=== PATIENT | female | born 1935 | race Caucasian/White ===

== ENCOUNTER → 2018-01-24 | Outpatient (CLI) | payer MEDICARE, OTHER | END | disposition home or self-care (01) | LOC: KCIC 14:26 | DX: M43.16 Spondylolisthesis, lumbar region (principal); M47.896 Other spondylosis, lumbar region | CPT/HCPCS: 72100 ==

== ENCOUNTER → 2018-02-02 | Outpatient (CLI) | payer MEDICARE, OTHER ==
[2018-02-02] MEDS: LIDOCAINE WITH 8.4% SOD BICARB 3 ML DISP.SYRIN. INJ (10:00)
[2018-02-02] MEDS: IOHEXOL 180 MG/ML 10 ML VIAL. IT (10:00)
== END | disposition home or self-care (01) ==
LOC: RAD 09:24
DX: M43.16 Spondylolisthesis, lumbar region (principal); M47.816 Spondylosis without myelopathy or radiculopathy, lumbar region; M48.061 Spinal stenosis, lumbar region without neurogenic claudication
CPT/HCPCS: 72132; 72265; Q9965

== ENCOUNTER 2018-03-09 08:18 | Inpatient (IN) | payer MEDICARE, OTHER ==
[2018-03-09] MEDS: BUPIVAC MPF-EPI 0.5%-1:200000 30 ML VIAL. INJ (06:00)
[~2018-03-09 08:18] MED LIST: BACITRACIN 50,000 UNIT in IV NORMAL SALINE 1000ML BAG 1,000 ML IRR; GELATIN SPONGE SIZE 100.; KETOROLAC 60 MG/2 ML INJ FOR OR.; LIDOCAINE 1% PF 2 ML VIAL. ID; MORPHINE SULFATE 2 MG/ML DISP.SYRIN. IV; ONDANSETRON PF 4 MG/2 ML VIAL. IV; PROCHLORPERAZINE 10 MG/2 ML VIAL. IV; THROMBIN TOPICAL 20,000 UNIT SPRAY.SYRN KIT TP; fentaNYL PF VIAL 100 MCG/2 ML VIAL IV
[2018-03-09] MEDS ORDERED: PROPOFOL 100 ML IV (09:00)
[2018-03-09] MEDS: IV RINGERS,LACTATED 1000ML 1,000 ML IV (09:21)
[2018-03-09] MEDS ORDERED: ROCURONIUM 50 MG/5 ML VIAL. (10:16)
[2018-03-09] MEDS ORDERED: fentaNYL PF VIAL 100 MCG/2 ML VIAL (10:16)
[2018-03-09] MEDS ORDERED: REMIFENTANIL 2 MG VIAL. IV (10:17)
[2018-03-09] MEDS ORDERED: GLYCOPYRROLATE 1 MG/5 ML VIAL. (10:17)
[2018-03-09] MEDS ORDERED: NEOSTIGMINE METHYLSULFATE 5 MG/5 ML SYRINGE. (10:17)
[2018-03-09] MEDS ORDERED: PROPOFOL 20 ML IV (10:21)
[2018-03-09] MEDS ORDERED: PHENYLEPHRINE 10 MG/ML VIAL. (10:21)
[2018-03-09] MEDS ORDERED: ONDANSETRON PF 4 MG/2 ML VIAL. (10:22)
[2018-03-09] MEDS ORDERED: LIDOCAINE 2% PF Vial for OR 5 ML VIAL. (10:22)
[2018-03-09] MEDS ORDERED: DESFLURANE > 120 MINUTES IH (10:22)
[2018-03-09] MEDS ORDERED: DEXAMETHASONE SOD PHOS 20 MG/5 ML VIAL. (10:22)
[2018-03-09] MEDS ORDERED: MINERAL OIL/PETROLATUM,WHITE OPHTH OINT 3.5GM TUBE. (10:24)
[2018-03-09] MEDS ORDERED: ceFAZolin 2GM PREMIX 2 GM/50 ML BAG IV (12:00)
[2018-03-09] MEDS ORDERED: DESFLURANE 61 TO 120 MINUTES IH (12:10)
[2018-03-09] MEDS ORDERED: ISOFLURANE UP TO 15 MINUTES. IH ×6 (12:10→12:11)
[2018-03-09] MEDS ORDERED: DESFLURANE UP TO 15 MINUTES. IH ×7 (12:10)
[2018-03-09] MEDS ORDERED: DESFLURANE 16 TO 30 MINUTES. IH ×2 (12:10)
[2018-03-09] MEDS ORDERED: DESFLURANE 31 TO 60 MINUTES IH ×4 (12:10)
[2018-03-09] MEDS ORDERED: ISOFLURANE 16 TO 30 MINUTES. IH ×5 (12:11)
[2018-03-09] MEDS ORDERED: ISOFLURANE 31 TO 60 MINUTES. IH ×3 (12:11)
[2018-03-09] MEDS ORDERED: ESMOLOL 100 MG/10 ML VIAL. IV (12:45)
[2018-03-09] MEDS ORDERED: METOPROLOL TARTRATE 5 MG/5 ML VIAL. (12:45)
[2018-03-09] MEDS: AMIODARONE 150 MG in IV DEXTROSE 5% 100ML 100 ML IV (14:17)
[2018-03-09] MEDS: hydroCHLOROthiazide 12.5 MG CAPSULE PO (17:00)
[2018-03-09] MEDS: PANTOPRAZOLE 40 MG TABLET.DR. PO (17:00)
[2018-03-09] MEDS: ATENOLOL 50 MG TABLET. PO (17:00)
[2018-03-09] MEDS: LISINOPRIL 20 MG TABLET PO (17:01)
[2018-03-09] MEDS: SERTRALINE 50 MG TABLET. PO (17:01)
[2018-03-09] MEDS: HYDROcodone/APAP 5/325MG 1 TAB TABLET PO (17:05)
[2018-03-09] MEDS: SIMVASTATIN 40 MG TABLET. PO (20:55)
[2018-03-09] MEDS ORDERED: HYDROcodone/APAP 5/325MG 1 TAB TABLET PO (21:00)
[2018-03-10] MEDS: HYDROcodone/APAP 7.5/325MG 1 TAB TABLET PO ×3 (00:27→15:44)
[2018-03-10] MEDS: REGADENOSON 0.4 MG/5 ML DISP.SYRIN. IV (10:16)
[2018-03-10 10:54] LABS: ADD MAN DIFF? NO
[2018-03-10 10:59] LABS: BASO % 1 % (0-3); EOS # 0.1 x10^3/uL (0.0-0.7); EOS % 2 % (0-3); HEMATOCRIT 37.8 % (36.0-47.0); HEMOGLOBIN 12.8 g/dL (12.0-15.5); LYMPH # 1.1 x10^3/uL (1.0-4.8); LYMPH % 21 % (24-48); MEAN CORPUSCULAR HEMOGLOBIN 31 pg (25-35); MEAN CORPUSCULAR HGB CONC 34 g/dL (31-37); MEAN CORPUSCULAR VOLUME 91 fL (79-100); MONO # 0.6 x10^3/uL (0.0-1.1); MONO % 10 % (0-9); NEUT # 3.6 x10^3uL (1.8-7.7); NEUT % 66 % (31-73); PLATELET COUNT 238 x10^3/uL (140-400); RED BLOOD COUNT 4.15 x10^6/uL (3.50-5.40); RED CELL DISTRIBUTION WIDTH 12.9 % (11.5-14.5); WHITE BLOOD COUNT 5.4 x10^3/uL (4.0-11.0)
[2018-03-10 11:12] LABS: MAGNESIUM 1.7 mg/dL (1.8-2.4)
[2018-03-10 11:18] LABS: ALBUMIN 3.5 g/dL (3.4-5.0); ALK PHOS 57 U/L (46-116); ALT (SGPT) 50 U/L (14-59); ANION GAP 8 (6-14); AST (SGOT) 36 U/L (15-37); BLOOD UREA NITROGEN 26 mg/dL (7-20); BUN/CREATININE RATIO 20 (6-20); CALCIUM 9.1 mg/dL (8.5-10.1); CARBON DIOXIDE 25 mmol/L (21-32); CHLORIDE 105 mmol/L (98-107); CREATININE 1.3 mg/dL (0.6-1.0); GLUCOSE 127 mg/dL (70-99); POTASSIUM 4.6 mmol/L (3.5-5.1); SODIUM 138 mmol/L (136-145); TOTAL BILIRUBIN 0.3 mg/dL (0.2-1.0); TOTAL PROTEIN 7.1 g/dL (6.4-8.2)
[2018-03-10] MEDS: LISINOPRIL 20 MG TABLET PO (11:22)
[2018-03-10] MEDS: PANTOPRAZOLE 40 MG TABLET.DR. PO (11:22)
[2018-03-10] MEDS: SERTRALINE 50 MG TABLET. PO (11:22)
[2018-03-10] MEDS: hydroCHLOROthiazide 12.5 MG CAPSULE PO (11:23)
[2018-03-10] MEDS: METOPROLOL TART IMMED RELEASE 25 MG TABLET. PO (12:00)
[2018-03-10] MEDS ORDERED: ENOXAPARIN 40 MG/0.4 ML SYRINGE. SQ (13:00)
== END 2018-03-10 16:47 | disposition home or self-care (01) | DRG 917 ==
LOC: OPSVCIP 08:18 → 2 NORTH 14:30
DX: T88.59XA Other complications of anesthesia, initial encounter (principal); I50.31 Acute diastolic (congestive) heart failure; I48.91 Unspecified atrial fibrillation; F32.9 Major depressive disorder, single episode, unspecified; I11.0 Hypertensive heart disease with heart failure; E78.5 Hyperlipidemia, unspecified; J45.909 Unspecified asthma, uncomplicated; M43.16 Spondylolisthesis, lumbar region; M48.062 Spinal stenosis, lumbar region with neurogenic claudication; Z90.710 Acquired absence of both cervix and uterus; Z96.653 Presence of artificial knee joint, bilateral; Z85.118 Personal history of other malignant neoplasm of bronchus and lung; M54.40 Lumbago with sciatica, unspecified side; Z88.8 Allergy status to other drugs, medicaments and biological substances; M19.90 Unspecified osteoarthritis, unspecified site; Z53.8 Procedure and treatment not carried out for other reasons
CPT/HCPCS: 36415; 72131; 78452; 80053; 83735; 85025; 85610; 85730; 87641; 93017; 93306; 96374; 96375; 96376; A9500; J0282; J0690; J1100; J1885; J2001; J2405; J2704; J2710; J2785; J3010; J3490; J7030; J7120

== ENCOUNTER 2018-03-16 09:17 | Inpatient (IN) | payer MEDICARE, OTHER ==
[2018-03-16] MEDS: IV RINGERS,LACTATED 1000ML 1,000 ML IV ×2 (07:00→16:22)
[~2018-03-16 09:17] MED LIST changes: -BACITRACIN 50,000 UNIT in IV NORMAL SALINE 1000ML BAG 1,000 ML IRR; -GELATIN SPONGE SIZE 100.; -KETOROLAC 60 MG/2 ML INJ FOR OR.; -MORPHINE SULFATE 2 MG/ML DISP.SYRIN. IV; -PROCHLORPERAZINE 10 MG/2 ML VIAL. IV; -THROMBIN TOPICAL 20,000 UNIT SPRAY.SYRN KIT TP
[2018-03-16] MEDS ORDERED: NEOSTIGMINE METHYLSULFATE 5 MG/5 ML SYRINGE. (11:07)
[2018-03-16] MEDS ORDERED: GLYCOPYRROLATE 1 MG/5 ML VIAL. (11:07)
[2018-03-16] MEDS: BACITRACIN 50,000 UNIT in IV NORMAL SALINE 1000ML BAG 1,000 ML IRR (11:17)
[2018-03-16] MEDS: BUPIVAC MPF-EPI 0.5%-1:200000 30 ML VIAL. INJ (11:17)
[2018-03-16] MEDS: GELATIN SPONGE SIZE 100. (11:17)
[2018-03-16] MEDS: KETOROLAC 60 MG/2 ML INJ FOR OR. (11:17)
[2018-03-16] MEDS: THROMBIN TOPICAL 20,000 UNIT SPRAY.SYRN KIT TP (11:17)
[2018-03-16] MEDS ORDERED: ROCURONIUM 50 MG/5 ML VIAL. (12:30)
[2018-03-16] MEDS ORDERED: fentaNYL PF VIAL 250 MCG/5 ML VIAL (12:31)
[2018-03-16] MEDS ORDERED: DEXAMETHASONE SOD PHOS 20 MG/5 ML VIAL. ×2 (12:32→15:11)
[2018-03-16] MEDS ORDERED: LIDOCAINE 2% PF Vial for OR 5 ML VIAL. (12:32)
[2018-03-16] MEDS ORDERED: PROPOFOL 50 ML IV (12:32)
[2018-03-16] MEDS ORDERED: PROPOFOL 20 ML IV (12:32)
[2018-03-16] MEDS ORDERED: ONDANSETRON PF 4 MG/2 ML VIAL. (12:32)
[2018-03-16] MEDS ORDERED: PHENYLEPHRINE 10 MG/ML VIAL. (12:33)
[2018-03-16] MEDS ORDERED: DESFLURANE > 120 MINUTES IH (12:33)
[2018-03-16] MEDS ORDERED: REMIFENTANIL 1 MG VIAL. IV (13:32)
[2018-03-16] MEDS ORDERED: MINERAL OIL/PETROLATUM,WHITE OPHTH OINT 3.5GM TUBE. ×2 (15:10)
[2018-03-16] MEDS ORDERED: MAGNESIUM HYDROXIDE 2,400 MG/30 ML ORAL.SUSP. PO (15:30)
[2018-03-16] MEDS ORDERED: fentaNYL PF VIAL 100 MCG/2 ML VIAL IV (15:30)
[2018-03-16] MEDS ORDERED: diphenhydrAMINE HCL 25 MG CAPSULE PO (15:30)
[2018-03-16] MEDS ORDERED: MAG HYDROX/ALUMINUM HYD/SIMETH 30 ML ORAL.SUSP PO (15:30)
[2018-03-16] MEDS ORDERED: 0.9 % SODIUM CHLORIDE 10 ML DISP.SYRIN. IV (15:30)
[2018-03-16] MEDS ORDERED: CALCIUM CARBONATE 500 MG TAB.CHEW PO (15:30)
[2018-03-16] MEDS ORDERED: ACETAMINOPHEN 325 MG TABLET. PO (15:30)
[2018-03-16] MEDS ORDERED: diphenhydrAMINE 50 MG/ML VIAL IV (15:30)
[2018-03-16] MEDS ORDERED: ONDANSETRON PF 4 MG/2 ML VIAL. IV (15:30)
[2018-03-16] MEDS: PROCHLORPERAZINE 10 MG/2 ML VIAL. IV ×2 (16:23→16:54)
[2018-03-16] MEDS: MORPHINE SULFATE 2 MG/ML DISP.SYRIN. IV ×2 (16:24→16:55)
[2018-03-16] MEDS: POTASSIUM CL 20MEQ D5-0.45NACL 1,000 ML IV (18:04)
[2018-03-16] MEDS: fentaNYL PF VIAL 100 MCG/2 ML VIAL IV ×2 (18:08→19:51)
[2018-03-16] MEDS: ceFAZolin SODIUM IV Push 1 GM VIAL. IVP (19:04)
[2018-03-16] MEDS: ALBUTEROL SULFATE 2.5 MG/3 ML NEBU. NEB (19:29)
[2018-03-16] MEDS: BUDESONIDE 0.5 MG/2 ML NEBU. NEB (19:29)
[2018-03-16] MEDS ORDERED: NON FORMULARY ITEM (Mometasone/Formoterol (Dulera 100 Mcg/5 Mcg Inhaler) 2 PUFF) IH (21:00)
[2018-03-16] MEDS: DOCUSATE SODIUM 100 MG CAPSULE. PO (21:06)
[2018-03-16] MEDS: SIMVASTATIN 40 MG TABLET. PO (21:08)
[2018-03-16] MEDS: METHOCARBAMOL 750 MG TABLET PO (21:08)
[2018-03-16] MEDS: METOPROLOL TART IMMED RELEASE 25 MG TABLET. PO (21:10)
[2018-03-16] MEDS: oxyCODONE/APAP 5/325 1 TAB TABLET PO (21:11)
[2018-03-16] MEDS ORDERED: ceFAZolin SODIUM 1 GM in IV DEXTROSE 5% 50 ML IV (22:00)
[2018-03-17] MEDS: fentaNYL PF VIAL 100 MCG/2 ML VIAL IV ×2 (01:21→08:26)
[2018-03-17] MEDS: oxyCODONE/APAP 5/325 1 TAB TABLET PO ×3 (01:53→12:01)
[2018-03-17] MEDS: ceFAZolin SODIUM IV Push 1 GM VIAL. IVP ×2 (03:09→10:50)
[2018-03-17] MEDS: PANTOPRAZOLE 40 MG TABLET.DR. PO (06:13)
[2018-03-17] MEDS: BUDESONIDE 0.5 MG/2 ML NEBU. NEB (07:57)
[2018-03-17] MEDS: ALBUTEROL SULFATE 2.5 MG/3 ML NEBU. NEB ×2 (07:57→12:57)
[2018-03-17] MEDS: SERTRALINE 50 MG TABLET. PO (08:07)
[2018-03-17] MEDS: DOCUSATE SODIUM 100 MG CAPSULE. PO (08:07)
[2018-03-17] MEDS: METHOCARBAMOL 750 MG TABLET PO ×2 (08:07→14:34)
[2018-03-17] MEDS: OMEGA-3 FATTY ACIDS/FISH OIL 1,000 MG CAPSULE. PO (08:07)
[2018-03-17] MEDS: hydroCHLOROthiazide 12.5 MG CAPSULE PO (08:11)
[2018-03-17] MEDS: LISINOPRIL 20 MG TABLET PO (08:12)
[2018-03-17] MEDS: METOPROLOL TART IMMED RELEASE 25 MG TABLET. PO (08:12)
[2018-03-17] MEDS: MULTIVITAMIN I-VITE TABLET. PO ×2 (08:16→08:22)
[2018-03-17] MEDS ORDERED: [UNRECOGNIZED DRUG - OTHER] PO (09:00)
[2018-03-17] MEDS ORDERED: MULTIVIT WITH CALCIUM IRON MIN PO (09:00)
== END 2018-03-17 15:40 | disposition home or self-care (01) | DRG 460 ==
LOC: OPSVCIP 09:17 → 4 SOUTHEST 17:44
PROC: 0SG0071 Fusion of Lumbar Vertebral Joint with Autologous Tissue Substitute, Posterior Approach, Posterior Column, Open Approach (ICD-10-PCS; principal; 2018-03-16 10:22)
PROC: 01NB0ZZ Release Lumbar Nerve, Open Approach (ICD-10-PCS; 2018-03-16 10:22)
PROC: 4A11X4G Monitoring of Peripheral Nervous Electrical Activity, Intraoperative, External Approach (ICD-10-PCS; 2018-03-16 10:22)
DX: M48.062 Spinal stenosis, lumbar region with neurogenic claudication (principal); M43.16 Spondylolisthesis, lumbar region; I10 Essential (primary) hypertension; J45.909 Unspecified asthma, uncomplicated; Z96.653 Presence of artificial knee joint, bilateral; M19.90 Unspecified osteoarthritis, unspecified site; Z87.01 Personal history of pneumonia (recurrent); Z85.118 Personal history of other malignant neoplasm of bronchus and lung; Z90.710 Acquired absence of both cervix and uterus; Z88.8 Allergy status to other drugs, medicaments and biological substances
CPT/HCPCS: 36415; 76000; 86850; 86900; 86901; 94640; 94760; 97162-GP; 97530-GP; A7015; C1713; J0690; J0780; J1100; J1885; J2001; J2270; J2405; J2704; J2710; J3010; J3490; J7030; J7120; J7613; J7626

== ENCOUNTER → 2018-06-14 | Outpatient (CLI) | payer MEDICARE, OTHER ==
[2018-03-17 11:01] VITALS: BP 143/57
[~2018-06-14] MED LIST changes: +ATEN50TA PO; +HYDR-2758 PO; +HYDR-2762 PO; +HYDR25TA9 PO; -LIDOCAINE 1% PF 2 ML VIAL. ID; +LISI-130 PO; +METH750T2 PO; +METO25TA4 PO; +MOME13HF2 IH; +MULT-47 PO; +OMEG1CAP68 PO; +OMEP20TA8 PO; -ONDANSETRON PF 4 MG/2 ML VIAL. IV; +OXYC1TAB7 PO; +SERT50TA PO; +SIMV80TA7 PO; +TYLENOL PM PO; +VIT1TABL32 PO; -fentaNYL PF VIAL 100 MCG/2 ML VIAL IV
--- NOTE | 2018-06-14 17:29 | KCIC ---
AP and lateral lumbar spine radiographs 06/14/2018 CLINICAL HISTORY: Low back pain. History of lumbar fusion. AP and lateral digital radiographs of the lumbar spine were obtained. Comparison is made to a CT scan of the lumbar spine dated 03/09/2018. Minimal S-shaped curvature of the thoracolumbar spine is seen. Surgical clips are seen within the right upper quadrant abdomen consistent with a cholecystectomy. Mild anterolisthesis of L4 in relation to L5 is seen. The patient is post right hemilaminotomy and posterolateral fusion using pedicle screws and stabilizing rods at L4-5. Degenerative changes are seen consisting of disc space narrowing, vertebral endplate sclerosis and minimal anterior and posterior vertebral body osteophyte formation predominantly at L4-5 and L5-S1 disc spaces. No fracture or subluxation is seen. Degenerative changes are seen involving the facet joints of the mid and lower lumbar spine. Atherosclerotic calcification of the abdominal aorta is noted. IMPRESSION: Postsurgical and degenerative changes are seen involving the lumbar spine as outlined above. No acute osseous abnormality is seen. Electronically signed by: Mike Galarza MD (06/14/2018 5:25 PM) [email or web address]
== END | disposition home or self-care (01) ==
LOC: KCIC 10:23
PROVIDERS: ATTEND Neurological Surgery
DX: M47.896 Other spondylosis, lumbar region (principal); M48.061 Spinal stenosis, lumbar region without neurogenic claudication; M25.78 Osteophyte, vertebrae; I70.0 Atherosclerosis of aorta; Z98.1 Arthrodesis status
CPT/HCPCS: 72100

== ENCOUNTER → 2018-07-12 | Outpatient (CLI) | payer MEDICARE, OTHER ==
[2018-03-17 11:01] VITALS: BP 143/57
--- NOTE | 2018-07-12 14:18 | KCIC ---
2 views left hip without comparison for left hip pain, status post lumbar surgery earlier this year. FINDINGS: There is no fracture, dislocation, or acute osseous abnormality identified. No significant degenerative changes. No radiopaque foreign bodies. IMPRESSION: 1. No acute osseous abnormality of the left hip. Electronically signed by: Jude Garcia MD (07/12/2018 2:15 PM) [id number]
== END | disposition home or self-care (01) ==
LOC: KCIC 10:06
PROVIDERS: ATTEND Nurse Practitioner Adult Health
DX: M25.552 Pain in left hip (principal)
CPT/HCPCS: 73502

== ENCOUNTER → 2018-11-16 | Outpatient (CLI) | payer MEDICARE, OTHER ==
[2018-03-17 11:01] VITALS: BP 143/57
[~2018-11-16] MED LIST changes: +GADOBUTROL 10 MMOL/10 ML VIAL IV ONE; +HYDR-2145 PO; -HYDR-2758 PO; +HYDR-2761 PO; -HYDR-2762 PO; +HYDR-2765 PO; -HYDR25TA9 PO; +SIMV80TA17 PO; -SIMV80TA7 PO
--- NOTE | 2018-11-16 12:18 | KCIC ---
MRI Lumbar Spine without and with contrast History: Lumbar radiculopathy, previous surgery, right hip and buttock pain Technique: Multiplanar, multi sequential pre and postcontrast MR imaging was performed of the lumbar spine. Comparison: October 07, 2017 Findings: There are now bilateral pedicle screws L4-5. Exam does not accurately evaluate integrity of hardware. There is increased grade 1 anterior spondylolisthesis L4-5, similar negligible anterior spondylolisthesis L5-S1. There is minimal posterior subluxation L3 relative to L4 greater than previously, also negligible posterior subluxation L2 relative L3 greater. Conus terminates at L1-2. There is moderate to severe narrowing of the L4-5 intervertebral disc space somewhat greater. There is again mild degenerative disc disease L5-S1 and L2-3, mild disc desiccation L3-4 and L1-2. L1-L2: This level was not included on the axial images. There is again negligible posterior protrusion. Spinal canal and neural foramina are adequate. L2-L3: There is minimal disc osteophyte complex and bulge with mild indentation upon the ventral thecal sac greatest in the far lateral recess as seen previously, spinal canal overall adequate. There is again moderate to severe facet degenerative change and moderate buckling of the ligamentum flavum. There is fluid in the facet articulations bilaterally. Neural foramina are overall adequate. L3-L4: There is moderate buckling of the ligamentum flavum and facet hypertrophic change. There is minimal disc osteophyte complex. There is now extradural focus of signal abnormality in the left lateral recess which does not enhance centrally, relatively hypointense on T2 sequence, overall size about 0.5 cm AP by 0.6 cm transverse by about 0.7 cm CC, located just superficial to the ligament flavum. There is new moderate narrowing of the far left lateral recess primarily from posteriorly. There is increased mild narrowing of the central canal and far right lateral recess. Neural foramina are overall adequate. L4-L5: There has been interval posterior decompression. There is facet degenerative change. There is mild narrowing of the far left lateral recess, central canal and right lateral recess now overall adequate. There is mild partial uncovering of the posterior aspect of the disc due to spondylolisthesis as minimal superimposed bulge. Neural foramina are adequate. L5-S1: There is mild to moderate facet degenerative change. Spinal canal and neural foramina are adequate. Impression: 1. Comparing with the September 2017 exam, there is now posterolateral fusion hardware L4-5. There is greater degree of L4-5 intervertebral disc space narrowing and somewhat increased grade 1 anterior spondylolisthesis at L4-5. There is increased minimal posterior subluxation L3 relative to L4. There is increased moderate left lateral recess stenosis at L3-4 in part by presumed complex synovial cyst, minimal narrowing of the central canal and right lateral recess at L3-4. There is other mild abnormal alignment as stated, multilevel facet degenerative change. There is no new significant lumbar neural foramina compromise. Electronically signed by: Rudy Sultana MD (11/16/2018 12:16 PM) [email or web address]
--- NOTE | 2018-11-16 12:54 | KCIC ---
EXAM: Lumbar spine, 3 views. HISTORY: Fusion. Pain. COMPARISON: 06/14/2018 FINDINGS: 3 views lumbar spine are obtained. There is instrumented posterior spinal fusion at L4-L5. There is grade 1 anterolisthesis this level measuring 9, stable in appearance. There is also grade 1 anterolisthesis of L5 on S1 measuring 5 mm. There is disc space narrowing at L4-L5 and facet arthropathy at L4-L5 and L5-S1. IMPRESSION: 1. Instrumented fusion at L4-L5. There has been no change in disc space narrowing, facet arthropathy and anterolisthesis at this level. 2. Degenerative change and anterolisthesis of L5 on S1, also stable in appearance. Electronically signed by: Lise Cain MD (11/16/2018 12:51 PM) [email or web address]
== END | disposition home or self-care (01) ==
LOC: KCIC 10:08
PROVIDERS: ATTEND Neurological Surgery
DX: M51.16 Intervertebral disc disorders with radiculopathy, lumbar region (principal); M48.061 Spinal stenosis, lumbar region without neurogenic claudication; M51.37 Other intervertebral disc degeneration, lumbosacral region; M43.17 Spondylolisthesis, lumbosacral region; M25.78 Osteophyte, vertebrae; J45.909 Unspecified asthma, uncomplicated; Z88.8 Allergy status to other drugs, medicaments and biological substances; Z87.891 Personal history of nicotine dependence
CPT/HCPCS: 72100; 72158; 82565; A9585

== ENCOUNTER → 2020-06-04 | Outpatient (CLI) | payer MEDICARE, OTHER ==
[2018-03-17 11:01] VITALS: BP 143/57
[~2020-06-04] MED LIST changes: +APIX2.5T PO; -GADOBUTROL 10 MMOL/10 ML VIAL IV ONE; +GADOTERATE 7.5 MMOL/15ML VIAL. IVP ONE
--- NOTE | 2020-06-04 16:13 | KCIC ---
LUMBAR SPINE WO/W CONTRAST Date: 06/04/2020 12:30 PM Indication: LOW BACK PAIN HX LUMBAR LAMINECTOMY. LUMBAR FUSION 2018. Pain in LBP/right hip. Pt fell a few months ago and landed seated on hard concrete. Comparison: 11/16/2018. Technique: Multi-planar multi-weighted magnetic resonance imaging of the lumbar spine was performed with and without intravenous contrast using the standard lumbar spine protocol. 15 cc Dotarem contrast was administered intravenously during the examination. FINDINGS: Postsurgical changes of posterior decompression and posterior instrumentation at L4-5. 3 mm retrolisthesis at L2-3. 2 mm retrolisthesis at L3-4. 3 mm anterolisthesis at L4-5 and L5-S1. No acute fracture. Moderate multilevel degenerative disc desiccation and disc height loss, severe at L2-3 and progressed from the prior. Degenerative endplate edema at L2-3, new from the prior. The conus terminates at a normal level. No abnormal signal is seen within the visualized distal spinal cord. No clumping of intrathecal nerve roots. No soft tissue abnormality in the visualized abdomen or pelvis. T12-L1: No disc bulge. No facet arthropathy. No significant spinal stenosis or neural foraminal narrowing. L1-L2: Disc bulge. Mild facet arthropathy. No significant spinal stenosis or neural foraminal narrowing. L2-L3: Disc bulge. Moderate to severe facet arthropathy. Moderate spinal stenosis, progressed from the prior. Mild bilateral neural foraminal narrowing, progressed from the prior. L3-L4: Disc bulge. Mild facet arthropathy. Mild spinal stenosis. Mild bilateral lateral recess narrowing, previously moderate on the left. Mild bilateral neural foraminal narrowing. L4-L5: Posterior decompression. No spinal canal stenosis. Mild neural foraminal narrowing. L5-S1: Disc bulge. Mild facet arthropathy. No significant spinal stenosis or neural foraminal narrowing. IMPRESSION: Lumbar spondylosis, progressed at L2-3 and detailed level by level above. Electronically signed by: Rudy Garza MD (06/04/2020 4:09 PM) [id number]
== END | disposition home or self-care (01) ==
LOC: KCIC MRI 12:29
PROVIDERS: ATTEND Internal Medicine
DX: M47.817 Spondylosis without myelopathy or radiculopathy, lumbosacral region (principal); M48.061 Spinal stenosis, lumbar region without neurogenic claudication; M43.16 Spondylolisthesis, lumbar region; Z98.1 Arthrodesis status
CPT/HCPCS: 72158; A9575

== ENCOUNTER → 2020-08-06 | Outpatient (CLI) | payer MEDICARE ==
[2018-03-17 11:01] VITALS: BP 143/57
[~2020-08-06] MED LIST changes: +ALLO100T PO; +ESTR0.5T PO; +FURO-68 PO; -GADOTERATE 7.5 MMOL/15ML VIAL. IVP ONE; +GLUC-11 PO; +POTA20TA4 PO; +PRAV20TA2 PO; +estropipate PO
--- NOTE | 2020-08-06 15:16 | PDOC1 ---
INITIAL PAIN CONSULT DATE OF SERVICE: DOS: DATE: 08/06/20 TIME: 15:09 CHIEF COMPLAINT: Chief Complaint: Low back and right lower extremity pain HISTORY OF PRESENT ILLNESS: 85-year-old female presents with history of pain low back right lower extremity for about 6 months not the result of any specific injury or accident that she is aware worse over time and spreading into the low back into the right lower ex tremity posterior gluteus lateral thigh anterior thigh medial thigh on the right side. Patient reports this travels about to the knee or just below it no symptoms on the left side. Patient reports it is constant sharp stabbing describes it as radiating aching sometimes cold sensation in the right leg as well. Patient reports no loss of motor function but significant fatigability with walking and standing much worse with these activities better with sitting or laying down but does awaken her from sleep about 2-3 times at night and she tosses and turns over the past few months secondary to the pain. Patient ports is not effective bowel bladder control does affect her ability to walk however she is using a walker she was with her today. Patient is had physical therapy for her knee and has had some therapy on her back as well which does help but only temporarily. Patient reports her disability rating 0-10 10 being the worst is a 5 with him home responsibilities 7 with recreation 10 with social activity 5 with self-care and 5 with life support activities. Patient did have an MRI scan of the lumbar spine dated June 04, 2020 showing lumbar spondylosis progressed at L2-3 with disc bulge at L2-3 moderate spinal stenosis progressed from prior exam L3-4 showing mild spinal stenosis and disc bulge as well with bilateral lateral recess narrowing previously moderate on the left mild bila teral neuroforaminal narrowing. Also L4-5 posterior decompression. Patient reports no loss of motor function but significant fatigability of the right lower extremity with ambulation. PAST MEDICAL HISTORY: PMH: Shortness of breath, hypertension, atrial fibrillation, arthritis, lung cancer 1991 PREVIOUS SURGERIES: Past Surgical Hx: Hysterectomy 1968, lumbar fusion 1999 59, cholecystectomy 1999, bilateral knee replacement 2014 CURRENT MEDICATIONS: Current Meds: Active Scripts Medications Dose Route/Sig Max Daily Dose Days Date Category Pravastatin Sodium 20 Mg Tablet 1 Tab PO DAILY 08/06/20 Reported Potassium Chloride (Potassium Chloride) 20 Meq Tablet.er 20 Meq PO DAILY 08/06/20 Reported Hydrocodone-Apap 5-325 (Hydrocodone Bit/Acetaminophen) 1 Tab Tablet 1 Tab PO Q4-6HRS PRN 08/06/20 Reported Cidaflex Tablet (Glucosamine Hcl/Chondr Kaufman A Na) 1 Each Tablet 1 Tab PO TID 30 08/06/20 Reported Lasix (Furosemide) 40 Mg Tablet 1 Tab PO DAILY 30 08/06/20 Reported [estropipate] PO DAILY 08/06/20 Reported Estradiol 0.5 Mg Tablet 1 Tab PO DAILY 08/06/20 Reported Allopurinol 100 Mg Tablet 2 Tab PO DAILY 08/06/20 Reported Eliquis (Apixaban) 2.5 Mg Tablet 2.5 Mg PO 06/04/20 Reported Metoprolol Tartrate 25 Mg Tablet 12.5 Mg PO BID 03/15/18 Reported Zoloft (Sertraline Hcl) 50 Mg Tablet 50 Mg PO DAILY 03/06/18 Reported Omeprazole 20 Mg Tablet.dr 20 Mg PO DAILY 03/06/18 Reported Ocuvite Tablet (Vit A,C & E/Lutein/Minerals) 1 Each Tablet 1 Each PO DAILY 03/06/18 Reported Fish Oil 500 Mg Softgel (Burdick-3/Dha/Epa/Fish Oil) 1 Each Capsule 1 Each PO DAILY 03/06/18 Reported Multiple Vitamins For Women (Multivit With Calcium,Iron,Min) 1 Each Tablet 1 Each PO DAILY 03/06/18 Reported Dulera 100 Mcg/5 Mcg Inhaler (Mometasone/Formoterol) 13 Gm Hfa.aer.ad 2 Puff IH BID 03/06/18 Reported ALLERGIES; Allergies: Coded Allergies: adhesive (Verified Allergy, Intermediate, DERMABOND, 03/16/18) adhesive tape (Verified Adverse Reaction, Intermediate, 03/16/18) TEARS SKIN/SENSITIVE SKIN FAMILY HISTORY: Family Hx: High blood pressure SOCIAL HISTORY: Social Hx: Patient does not rachel alcohol does not smoke or use any illegal illicit or recreational drugs reports she is currently retired and lives locally in [facility]. REVIEW OF SYSTEMS: ROS: Positive for those items mentioned in history of present illness, all systems are reviewed, otherwise negative, is complete full and well-documented on patient's chart. PHYSICAL EXAM: VS: Blood pressure is 131/64 pulse 98 respirations 18 temperature 98.1 F height is 5 feet 5 inches weight 174 pounds PE: PHYSICAL EXAMINATION: GENERAL: The patient is awake, alert, oriented, appropriate, very pleasant demeanor HEENT: Shows normocephalic, atraumatic. Extraocular movements are intact and symmetrical. Oral cavity: Mucous membranes moist and pink. NECK: Shows anterior throat supple without palpable lymphadenopathy noted. Swallow reflex symmetrical. CHEST: Shows normal on inspection. Breath sounds are clear bilaterally, distant but no rales rhonchi or wheezes auscultated. HEART: Shows S1, S2 clear. No murmurs auscultated. ABDOMEN: Soft, nontender, nondistended, obese. No palpable organomegaly is noted. No rebound or guarding demonstrated. BACK: Shows spine grossly in the midline. Normal-appearing cervical lordotic curvature. There is increased thoracic kyphosis, some minor flattening of the lumbar lordotic curvature. Lumbar paraspinous muscles show symmetrical on inspection, on palpation shows some moderate tenderness diffusely throughout the upper, middle and lower distribution of the paraspinous muscles bilaterally and also into the lower thoracic paraspinous musculature, firm and mildly tender, but without specific trigger points, without radiation of pain. The patient has good rotational motion of the lumbar spine, both laterally as well as extension and flexion without significant difficulty. No tenderness over the spinous processes, sacrum or sacroiliac regions. EXTREMITIES: Lower extremities show deep tendon reflexes 1+ in the patellar and tendo calcaneus tendons. Motor exam is 4 on a scale of 5 with right dorsiflexion, extension, quadriceps and hamstring flexion and 5/5 on the left. Peripheral pulses are 1 posterior tibial. 1+ peripheral edema is noted bilaterally at the ankle only. Lower extremities are warm and dry to touch, equal in color and appearance. Straight leg raise noted to be negative bilaterally. Gaenslen's and Vito's maneuvers are negative bilaterally as well. The patient is able to stand, standing on her toes is difficult when she loses balance quickly and she is walking with a slight shuffling gait but is using a walker to ambulate does not appear to favor the right or left lower extremity significantly for short distance in the office today. SKIN: Shows warm and dry, good turgor. No edema. No sores, rashes or bruising throughout. IMPRESSION: Impression: 85-year-old female with proximate 6-month history of low back right lower extremity pain in a radicular fashion MRI scan lumbar spine as noted Hypertension Atrial fibrillation Arthritis History of lung cancer Plan: Options were discussed with the patient including conservative medical management therapies interventional techniques that she like to pursue and vaginal techniques, we discussed a lumbar epidural steroid injection using description as well as anatomical models to describe the procedure. 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 If deemed safe and appropriate will have her return for lumbar epidural steroid injection at that time. In the meantime we will try Medrol Dosepak patient given instructions will side effects aware with the medication and will follow-up as scheduled, if Eliquis is held, for lumbar epidural steroid injection. SHRUTHI JAY MD Aug 06, 2020 15:16
== END | disposition home or self-care (01) ==
LOC: PNCL 13:21
PROVIDERS: ATTEND Anesthesiology
DX: M54.5 Low back pain (principal); M79.604 Pain in right leg; M47.816 Spondylosis without myelopathy or radiculopathy, lumbar region; M48.061 Spinal stenosis, lumbar region without neurogenic claudication; I10 Essential (primary) hypertension; I48.91 Unspecified atrial fibrillation; M19.90 Unspecified osteoarthritis, unspecified site; E78.00 Pure hypercholesterolemia, unspecified; K21.9 Gastro-esophageal reflux disease without esophagitis; J45.909 Unspecified asthma, uncomplicated; Z85.118 Personal history of other malignant neoplasm of bronchus and lung; Z90.49 Acquired absence of other specified parts of digestive tract; Z90.410 Acquired total absence of pancreas; Z96.653 Presence of artificial knee joint, bilateral; Z79.899 Other long term (current) drug therapy; Z85.828 Personal history of other malignant neoplasm of skin; Z87.891 Personal history of nicotine dependence; Z88.8 Allergy status to other drugs, medicaments and biological substances
CPT/HCPCS: G0463

== ENCOUNTER → 2020-08-20 | Outpatient (CLI) | payer MEDICARE ==
[2018-03-17 11:01] VITALS: BP 143/57
[~2020-08-20] MED LIST changes: +IOHEXOL 180 MG/ML 10 ML VIAL. ONE; +methylPREDNISolone ACETATE 40 MG/ML VIAL. ONE; +methylPREDNISolone ACETATE 80 MG/ML VIAL. ONE
--- NOTE | 2020-08-20 15:29 | PDOC ---
Progress Note - Pain Clinic Date of Service: DOS: DATE: 08/20/20 TIME: 15:26 Diagnosis: Dx: Lumbar radiculopathy with lumbar degenerative disease and lumbar postlaminectomy syndrome History or Present Illness: HPI: 85-year female returns follow-up status post initial evaluation and clearance to hold her Eliquis for 2 days for epidural steroid injection patient is achieved this from her primary care physician and has been off of it now for 2days reports still significant pain in the low back and right lower extremity right posterior gluteus lateral thigh anterior thigh medial thigh some in the groin and the medial knee as well patient reports it was much better after Medrol Dosepak which we given her last time but the pain began to return over the last few days. Patient reports it is a stabbing pain in the right low back and right leg and is well as sharp in the back and the leg and thigh patient rates is a 9 on scale 10 is worse over the past week 7 on average for its least is a 7 today. Patient reports no new motor or sensory deficits no new bowel or bladder incontinence or other complaints. Physical Exam: VS: Blood pressure is 131/76 pulse 73 respirations 18 temperature 97.6 F height 5 feet 5 inches weight is 176 pounds PE: PHYSICAL EXAMINATION: GENERAL: The patient is awake, alert, oriented, appropriate, very pleasant demeanor HEENT: Shows normocephalic, atraumatic. Extraocular movements are intact and symmetrical. NECK: Shows anterior throat supple without palpable lymphadenopathy noted. Swallow reflex symmetrical. CHEST: Shows normal on inspection. Breath sounds are clear bilaterally. HEART: Shows S1, S2 clear. No murmurs auscultated. ABDOMEN: Soft, nontender, nondistended. No palpable organomegaly is noted. BACK: Shows spine grossly in the midline. Normal-appearing cervical lordotic curvature. There is slightly increased thoracic kyphosis, some minor flattening of the lumbar lordotic curvature. Lumbar paraspinous muscles show symmetrical on inspection, well-healed surgical scar in the midline, on palpation shows some moderate tenderness diffusely throughout the upper, middle and lower distribution of the paraspinous muscles without specific trigger points, without radiation of pain. The patient has good rotational motion of the lumbar spine, both laterally as well as extension and flexion without significant difficulty. No tenderness over the spinous processes, sacrum or sacroiliac regions. EXTREMITIES: Lower extremities show deep tendon reflexes 1+ in the patellar and tendo calcaneus tendons. Motor exam is 4 on a scale of 5 with right dorsiflexion, extension, quadriceps and hamstring flexion and 5/5 on the left. Peripheral pulses are 1+ posterior tibial. New peripheral edema is noted bilaterally. Lower extremities are warm and dry to touch, equal in color and appearance. SKIN: Shows warm and dry, good turgor. No edema. No sores, rashes or bruising throughout. Procedure: Procedure: Options were discussed with the patient. Patient will chart reviews her current medication regimen updated current review of systems updated today as well. We will proceed with a lumbar epidural steroid injection today with fluoroscopic guidance. Risks were discussed including but not limited to: Bleeding, infection, possibility of epidural hematoma and subsequent neurological compromise, dural puncture, headaches, spinal cord and/or nerve damage, side effects of steroid medication, and poor results regarding pain control. Patient understands wished to proceed. Patient will return to the clinic in approximate 2 weeks for follow-up, was counseled as return appointment, activity level, and side effects to be aware of. Medication Injected: Med Injected: Procedure is lumbar epidural steroid injection under local anesthetic using sterile prep and drape at the L3-4 level using C-arm fluoroscopic guidance in both AP and lateral views medications injected is 120 mg Depo-Medrol + 10 mL preservative-free normal saline and 2 mL contrast- condition at discharge is stable patient tolerated procedure well had no complications. Condition at Discharge: Condition at Discharge: Condition at discharge is stable, patient tolerated procedure well and had no complications. SHRUTHI JAY MD Aug 20, 2020 15:29
== END | disposition home or self-care (01) ==
LOC: PNCL 14:23
PROVIDERS: ATTEND Anesthesiology
DX: M51.16 Intervertebral disc disorders with radiculopathy, lumbar region (principal); M96.1 Postlaminectomy syndrome, not elsewhere classified; I10 Essential (primary) hypertension; I48.91 Unspecified atrial fibrillation; E78.00 Pure hypercholesterolemia, unspecified; J45.909 Unspecified asthma, uncomplicated; M19.90 Unspecified osteoarthritis, unspecified site; K21.9 Gastro-esophageal reflux disease without esophagitis; F32.9 Major depressive disorder, single episode, unspecified; Z90.49 Acquired absence of other specified parts of digestive tract; Z90.710 Acquired absence of both cervix and uterus; Z98.890 Other specified postprocedural states; Z85.828 Personal history of other malignant neoplasm of skin; Z87.891 Personal history of nicotine dependence; Z79.899 Other long term (current) drug therapy; Z87.440 Personal history of urinary (tract) infections; Z72.89 Other problems related to lifestyle; Z82.49 Family history of ischemic heart disease and other diseases of the circulatory system; Z88.8 Allergy status to other drugs, medicaments and biological substances
CPT/HCPCS: 62323; J1030; J1040; Q9965

== ENCOUNTER → 2020-09-04 | Outpatient (CLI) | payer MEDICARE ==
[2018-03-17 11:01] VITALS: BP 143/57
--- NOTE | 2020-09-04 14:14 | PDOC ---
Progress Note - Pain Clinic Date of Service: DOS: DATE: 09/04/20 TIME: 14:11 Diagnosis: Dx: Lumbar radiculopathy with lumbar degenerative disease and lumbar postlaminectomy syndrome History or Present Illness: HPI: 85-year-old female returns follow-up status post lumbar epidural steroid traction x1. Patient reports about 75% improvement in her low back and right lower extremity pain. Patient ports he can increase activities greater ease and comfort standing for longer distances walking greater distances traveling with g reater ease and comfort doing household activities much greater ease and sleeping better at night patient reports he does not awaken her from sleep at this time. Patient rates her pain as a 9 on scale 10 is worse over the past week 7 on average 5 its least describes as sharp and aching in the low back with radiating pain that is shooting sometimes throbbing and dull in the low back. Patient ports pain into the right hip right lateral thigh anterior thigh medial thigh and medial knee with activity but much better than it was. Patient reports no new motor or sensory deficits no new bowel or bladder incontinence or other complaints. Physical Exam: VS: Blood pressure is 120/77 pulse 101 respirations 18 temperature 97.5 F height 5 feet 5 inches weight is 171 pounds PE: PHYSICAL EXAMINATION: GENERAL: The patient is awake, alert, oriented, appropriate, very pleasant demeanor HEENT: Shows normocephalic, atraumatic. Extraocular movements are intact and symmetrical. Oral cavity: Mucous membranes moist and pink. Dentition is intact. NECK: Shows anterior throat supple without palpable lymphadenopathy noted. Swallow reflex symmetrical. CHEST: Shows normal on inspection. Breath sounds are clear bilaterally, no rales or rhonchi. HEART: Shows S1, S2 clear. No murmurs auscultated. ABDOMEN: Soft, nontender, nondistended, obese. No palpable organomegaly is noted. No rebound or guarding demonstrated. BACK: Shows spine grossly in the midline. Normal-appearing cervical lordotic curvature. There is increased thoracic kyphosis, some minor flattening of the lumbar lordotic curvature. Lumbar paraspinous muscles show symmetrical on inspection, on palpation shows some moderate tenderness diffusely throughout the upper, middle and lower distribution of the paraspinous muscles without specific trigger points, without radiation of pain. The patient has good rotational motion of the lumbar spine, both laterally as well as extension and flexion without significant difficulty. No tenderness over the spinous processes, sacrum or sacroiliac regions. EXTREMITIES: Lower extremities show deep tendon reflexes 1+ in the patellar and tendo calcaneus tendons. Motor exam is 4 on a scale of 5 with right dorsiflexion, extension, quadriceps and hamstring flexion and 5/5 on the left. Peripheral pulses are 1+ posterior tibial. No peripheral edema is noted bilate rally. Lower extremities are warm and dry to touch, equal in color and appearance. SKIN: Shows warm and dry, good turgor. No edema. No sores, rashes or bruising throughout. Procedure: Procedure: Options were discussed with the patient. Patient will chart reviews her current medication regimen updated current review of systems updated today as well. We will proceed with a second in the series lumbar epidural steroid injection today with fluoroscopic guidance. Risks were discussed including but not limited to: Bleeding, infection, possibility of epidural hematoma and subsequent neurological compromise, dural puncture, headaches, spinal cord and/or nerve damage, side effects of steroid medication, and poor results regarding pain control. Patient understands wished to proceed. Patient will return to clinic in approximate 2 weeks for follow-up was counseled as to return appointment activity level and side effects to be aware of. Medication Injected: Med Injected: Procedure is lumbar epidural steroid injection under local anesthetic using sterile prep and drape at the L3-4 level using C-arm fluoroscopic guidance in both AP and lateral views medications injected is 120 mg Depo-Medrol + 10 mL preservative-free normal saline and 2 mL contrast- condition at discharge is stable patient tolerated procedure well had no complications. Condition at Discharge: Condition at Discharge: Condition at discharge stable, patient tolerated procedure well and had no complications. SHRUTHI JAY MD Sep 04, 2020 14:14
== END | disposition home or self-care (01) ==
LOC: PNCL 13:29
PROVIDERS: ATTEND Anesthesiology
DX: M51.16 Intervertebral disc disorders with radiculopathy, lumbar region (principal); M96.1 Postlaminectomy syndrome, not elsewhere classified; M79.604 Pain in right leg; E78.00 Pure hypercholesterolemia, unspecified; I10 Essential (primary) hypertension; I48.91 Unspecified atrial fibrillation; J45.909 Unspecified asthma, uncomplicated; K21.9 Gastro-esophageal reflux disease without esophagitis; M19.90 Unspecified osteoarthritis, unspecified site; F32.9 Major depressive disorder, single episode, unspecified; Z85.828 Personal history of other malignant neoplasm of skin; Z90.49 Acquired absence of other specified parts of digestive tract; Z91.040 Latex allergy status; Z98.890 Other specified postprocedural states; Z79.899 Other long term (current) drug therapy; Z85.118 Personal history of other malignant neoplasm of bronchus and lung; Z87.891 Personal history of nicotine dependence; Z88.8 Allergy status to other drugs, medicaments and biological substances
CPT/HCPCS: 62323; J1030; J1040; Q9965

== ENCOUNTER → 2021-02-12 | Outpatient (CLI) | payer MEDICARE ==
[2018-03-17 11:01] VITALS: BP 143/57
[~2021-02-12] MED LIST changes: +APIX5TAB PO; -IOHEXOL 180 MG/ML 10 ML VIAL. ONE; +METH-562 PO; -METH750T2 PO; +METO5TAB4 PO; +TORS20TA2 PO; -methylPREDNISolone ACETATE 40 MG/ML VIAL. ONE; -methylPREDNISolone ACETATE 80 MG/ML VIAL. ONE
--- NOTE | 2021-02-12 12:17 | PDOC ---
Progress Note - Pain Clinic Date of Service: DOS: DATE: 02/12/21 TIME: 12:12 Diagnosis: Dx: Lumbar radiculopathy with lumbar degenerative disc disease and lumbar postlaminectomy syndrome History or Present Illness: HPI: 85-year-old female returns follow-up status post lumbar epidural steroid injections x2 most recently September 04, 2020. Patient reports he did very well with that with about a 75% improvement after the injection for approximately 2 months, with pain returning down the low back and bilateral lower extremities mostly the posterior thighs gluteus anterior thighs anterior medial thighs medial groin medial lower leg medial knees patient reports the right side with traditionally the lower side but not the left side is painful as well reports worse with walking standing changing positions better with sitting or laying down generally does not awaken her from sleep at night but over the last few weeks it has about once every 2-3 times at night patient reports it is a 10 on scale 10 is worse over the past week 9 on average 5 its least and is a 9 today patient reports that sharp and aching severe radiating and shooting in the lower extremities patient has done physical therapy in the past also is still doing stretching and strengthening exercises from those therapies daily and is trying to walk daily up she is using a walker most recently but is still walking daily as much she can. Patient reports she still taking [id number] Tylenol also takes hydrocodone occasionally will take an Advil or naproxen but it does upset her stomach occasionally. Patient reports no new motor or sensory deficits no new bowel or bladder incontinence or other complaints. Physical Exam: VS: Blood pressure is 118/73 pulse 127 respirations 18 temperature 97.6 Weight is 174 pounds PE: PHYSICAL EXAMINATION: GENERAL: The patient is awake, alert, oriented, appropriate, very pleasant demeanor HEENT: Shows normocephalic, atraumatic. Extraocular movements are intact and symmetrical. Oral cavity: Mucous membranes moist and pink. NECK: Shows anterior throat supple without palpable lymphadenopathy noted. Swallow reflex symmetrical. CHEST: Shows normal on inspection. Breath sounds are clear bilaterally, distant but no rales rhonchi or wheezes auscultated. HEART: Shows S1, S2 clear. No murmurs auscultated. ABDOMEN: Soft, nontender, nondistended, obese. No palpable organomegaly is noted. No rebound or guarding demonstrated. BACK: Shows spine grossly in the midline. Normal-appearing cervical lordotic curvature. There is slightly increased thoracic kyphosis, some minor flattening of the lumbar lordotic curvature. Lumbar paraspinous muscles show symmetrical on inspection, on palpation shows some moderate tenderness diffusely throughout the upper, middle and lower distribution of the paraspinous muscles, but without specific trigger points, without radiation of pain. The patient has good rotational motion of the lumbar spine, both laterally as well as extension and flexion without significant difficulty. EXTREMITIES: Lower extremities show deep tendon reflexes 1 in the patellar and tendo calcaneus tendons. Motor exam is 4 on a scale of 5 with right dorsiflexion, extension, quadriceps and hamstring flexion and 5/5 on the left. Peripheral pulses are 1+ posterior tibial. No peripheral edema is noted bilaterally. Lower extremities are warm and dry to touch, equal in color and appearance. Straight leg raise noted to be positive on the right about 40 degrees, left side is negative. Gaenslen's and Vito's maneuvers are negative as well. The patient is able to stand, uses her walker to help her up from a seated position is walking with a shuffling gait using the walker to ambulate. SKIN: Shows warm and dry, good turgor. No edema. No sores, rashes or bruising throughout. Procedure: Procedure: Options discussed with the patient patient's daughter who accompanied her visit today. Patient has clinical L3-4 radiculopathy bilaterally right greater than left and is responded well to lumbar epidural steroid injections. We discussed continued physical therapies as well as interventional techniques that she did very well after the last lumbar epidural steroid injection and would like to proceed with additional injection. Also will have her hold her Eliquis for 3 days which she has been cleared with her plant health care technician to do so as well. We will have her return after preauthorization and plan for translaminar L3-4 level lumbar epidural steroid injection at that time. The meantime patient will continue with oral analgesics as well as stretching strengthening and walking as tolerated. Medication Injected: Med Injected: None Condition at Discharge: Condition at Discharge: Condition at discharge is stable. SHRUTHI JAY MD February 12, 2021 12:17
== END | disposition home or self-care (01) ==
LOC: PNCL 11:15
PROVIDERS: ATTEND Anesthesiology
DX: M51.16 Intervertebral disc disorders with radiculopathy, lumbar region (principal); M96.1 Postlaminectomy syndrome, not elsewhere classified; E78.00 Pure hypercholesterolemia, unspecified; I10 Essential (primary) hypertension; I48.91 Unspecified atrial fibrillation; K21.9 Gastro-esophageal reflux disease without esophagitis; M19.90 Unspecified osteoarthritis, unspecified site; J45.909 Unspecified asthma, uncomplicated; F32.9 Major depressive disorder, single episode, unspecified; Z90.710 Acquired absence of both cervix and uterus; Z90.49 Acquired absence of other specified parts of digestive tract; Z98.890 Other specified postprocedural states; Z85.828 Personal history of other malignant neoplasm of skin; Z79.899 Other long term (current) drug therapy; Z87.891 Personal history of nicotine dependence; Z72.89 Other problems related to lifestyle; Z82.49 Family history of ischemic heart disease and other diseases of the circulatory system; Z88.8 Allergy status to other drugs, medicaments and biological substances
CPT/HCPCS: G0463

== ENCOUNTER → 2021-02-26 | Outpatient (CLI) | payer MEDICARE ==
[2018-03-17 11:01] VITALS: BP 143/57
[~2021-02-26] MED LIST changes: +IOHEXOL 180 MG/ML 10 ML VIAL. ONE; +methylPREDNISolone ACETATE 40 MG/ML VIAL. ONE; +methylPREDNISolone ACETATE 80 MG/ML VIAL. ONE
--- NOTE | 2021-02-26 11:35 | PDOC ---
Progress Note - Pain Clinic Date of Service: DOS: DATE: 02/26/21 TIME: 11:32 Diagnosis: Dx: Lumbar radiculopathy with lumbar degenerative disease and lumbar postlaminectomy syndrome History or Present Illness: HPI: 85-year-old female returns for follow-up status post lumbar epidural steroid ejections x2. Patient reports has been off her Eliquis now for 3 days. Patient reports did very well after the first injection about 75% second about 50% improvement but still better than it was patient reports still significant pain in the low back and into the right lower extremity more than the left. Patient reports she has been increase her activity to greater ease and comfort and walking greater distances but feels that her balance is off to some extent as well. Patient reports her pain is a 9 on scale 10 is worse over the past week 8 on average 7 its least is a 7 today patient scribes a sharp radiating can be severe with extended standing or walking better with sitting or laying down occasionally wakes her from sleep at night every night. Patient reports no new motor or sensory deficits no new bowel or bladder incontinence or other complaints. Physical Exam: VS: Blood pressure is 129/62 pulse 67 respirations 18 temperature 97.9 F height is 5 inches weight is 176 pounds PE: PHYSICAL EXAMINATION: GENERAL: The patient is awake, alert, oriented, appropriate, very pleasant demeanor HEENT: Shows normocephalic, atraumatic. Extraocular movements are intact and symmetrical. NECK: Shows anterior throat supple without palpable lymphadenopathy noted. Swallow reflex symmetrical. CHEST: Shows normal on inspection. Breath sounds are clear bilaterally, no rales or rhonchi. HEART: Shows S1, S2 clear. No murmurs auscultated. ABDOMEN: Soft, nontender, nondistended. BACK: Shows spine grossly in the midline. Normal-appearing cervical lordotic curvature. There is slightly increased thoracic kyphosis, some minor flattening of the lumbar lordotic curvature. Well-healed midline surgical scar is again noted. Lumbar paraspinous muscles show symmetrical on inspection, on palpation shows some moderate tenderness diffusely throughout the upper, middle and lower distribution of the paraspinous muscles, but without specific trigger points, without radiation of pain. The patient has good rotational motion of the lumbar spine, both laterally as well as extension and flexion without significant difficulty. EXTREMITIES: Lower extremities show deep tendon reflexes 1 in the patellar and tendo calcaneus tendons. Motor exam is 4 on a scale of 5 with right dorsiflexion, extension, quadriceps and hamstring flexion and 5/5 on the left. Peripheral pulses are 1+ posterior tibial. No peripheral edema is noted bilaterally. Lower extremities are warm and dry. SKIN: Shows warm and dry, good turgor. No edema. No sores, rashes or bruising throughout. Procedure: Procedure: Options discussed with patient. Patient's old chart was viewed as her current medication regimen updated current review of systems updated today as well. We will proceed with a third in the series lumbar epidural steroid injection today with fluoroscopic guidance. Risks were discussed including but not limited to: Bleeding, infection, possibility of epidural hematoma and subsequent neurological compromise, dural puncture, headaches, spinal cord and/or nerve damage, side effects of steroid medication, and poor results regarding pain control. Patient understands and wished to proceed. Patient will return to the clinic in approximate 2 weeks for follow-up, was counseled as to return appointment activity level and side effects to be aware of. Medication Injected: Med Injected: Procedure is lumbar epidural steroid injection under local anesthetic using sterile prep and drape at the L3-4 level using C-arm fluoroscopic guidance in both AP and lateral views medications injected is 120 mg Depo-Medrol +10mL preservative-free normal saline and 2 mL contrast- condition at discharge is st able patient tolerated procedure well had no complications. Condition at Discharge: Condition at Discharge: Condition at discharge stable, patient tolerated procedure well and had no complications. Patient will restart Eliquis tomorrow February 27, 2021. SHRUTHI JAY MD Feb 26, 2021 11:35
--- NOTE | 2021-02-26 11:36 | PDOC4 ---
PROCEDURE Procedure Patient was consented for lumbar epidural steroid injection. Risks were dis cussed including but not limited to: Bleeding, infection, possibility of epidural hematoma and subsequent neurological compromise, dural puncture, headaches, spinal cord and/or nerve damage, side effects of steroid medication, and poor results regarding pain control. Patient understands and wished to proceed. Procedure is lumbar epidural steroid injection under local anesthetic using sterile prep and drape at the L3-4 level using C-arm fluoroscopic guidance in both AP and lateral views medications injected is 120 mg Depo-Medrol +10mL preservative-free normal saline and 2 mL contrast- condition at discharge is stable patient tolerated procedure well had no complications. SHRUTIH JAY MD Feb 26, 2021 11:36
== END | disposition home or self-care (01) ==
LOC: PNCL 10:58
PROVIDERS: ATTEND Anesthesiology
DX: M51.16 Intervertebral disc disorders with radiculopathy, lumbar region (principal); M96.1 Postlaminectomy syndrome, not elsewhere classified; I10 Essential (primary) hypertension; I48.91 Unspecified atrial fibrillation; E78.00 Pure hypercholesterolemia, unspecified; K21.9 Gastro-esophageal reflux disease without esophagitis; J45.909 Unspecified asthma, uncomplicated; M19.90 Unspecified osteoarthritis, unspecified site; F32.9 Major depressive disorder, single episode, unspecified; Z90.49 Acquired absence of other specified parts of digestive tract; Z90.710 Acquired absence of both cervix and uterus; Z85.828 Personal history of other malignant neoplasm of skin; Z79.899 Other long term (current) drug therapy; Z98.890 Other specified postprocedural states; Z87.891 Personal history of nicotine dependence; Z82.49 Family history of ischemic heart disease and other diseases of the circulatory system; Z88.8 Allergy status to other drugs, medicaments and biological substances
CPT/HCPCS: 62323; J1030; J1040; Q9965

== ENCOUNTER → 2021-07-17 | Outpatient (CLI) | payer MEDICARE ==
[2018-03-17 11:01] VITALS: BP 143/57
--- NOTE | 2021-07-17 13:16 | PDOC ---
Progress Note - Pain Clinic Date of Service: DOS: DATE: 07/17/21 TIME: 13:14 Diagnosis: Dx: Lumbar radiculopathy with lumbar degenerative disease and lumbar postlaminectomy syndrome History or Present Illness: HPI: 86-year-old female returns last seen 02/26/2021 after lumbar epidural steroid injection did very well with about 40 to 50% improvement overall patient reports pain returning now over the past few weeks in the low back and right lower extremity posterior gluteus posterior lateral thigh lateral anterior thigh ante romedial thigh medial lower leg patient reports a stabbing review radiating and severe rated as a 9 on scale 10 is worst least and average and is a 9 today. Patient reports no loss of motor function but significant fatigability the right lower extremity and she is using a walker to ambulate and has it with her today. Patient reports she is getting some pain in the left leg now which is new for her but only infrequently but it is still present and comfortable. Patient reports wakes her from sleep at night initially she would do much better with distance walking doing household activities work activities travel with greater ease and comfort. Patient reports no bowel or bladder incontinence. Physical Exam: VS: Blood pressure is 116/38 pulse 90 respirations are 20 temperature is 98.3 F weight is 177 pounds PE: PHYSICAL EXAMINATION: GENERAL: The patient is awake, alert, oriented, appropriate, very pleasant in demeanor HEENT: Shows normocephalic, atraumatic. Extraocular movements are intact and symmetrical. Oral cavity: Mucous membranes moist and pink. NECK: Shows anterior throat supple without palpable lymphadenopathy noted. Swallow reflex symmetrical. CHEST: Shows normal on inspection. Breath sounds are clear bilaterally. HEART: Shows S1, S2 clear. No murmurs auscultated. ABDOMEN: Soft, nontender, nondistended. No palpable organomegaly is noted. No rebound or guarding demonstrated. BACK: Shows spine grossly in the midline. Normal-appearing cervical lordotic curvature. There is slightly increased thoracic kyphosis, some minor flattening of the lumbar lordotic curvature, with well-healed midline surgical scar noted. Lumbar paraspinous muscles show symmetrical on inspection, on palpation shows so me moderate tenderness diffusely throughout the upper, middle and lower distribution of the paraspinous muscles, but without specific trigger points, without radiation of pain. The patient has good rotational motion of the lumbar spine, both laterally as well as extension and flexion without significant difficulty. No tenderness over the spinous processes, sacrum or sacroiliac re gions. EXTREMITIES: Lower extremities show deep tendon reflexes 1 in the patellar and tendo calcaneus tendons. Motor exam is full on a scale of 5 with right dorsiflexion, extension, quadriceps and hamstring flexion and 5/5 on the left. Peripheral pulses are 1+ posterior tibial. No peripheral edema is noted bilaterally. Lower extremities are warm and dry to touch, equal in color and appearance. SKIN: Shows warm and dry, good turgor. No edema. No sores, rashes or bruising throughout. Procedure: Procedure: Options were discussed with the patient. Patient chart was reviewed as her current medication regimen updated current review of systems updated today as well. We will proceed with a lumbar epidural steroid injection today with fluoroscopic guidance. Risks were discussed including but not limited to: Bleeding, infection, possibility of epidural hematoma and subsequent neurological compromise, dural puncture, headaches, spinal cord and/or nerve damage, side effects of steroid medication, and poor results regarding pain control. Patient understands and wished to proceed. Patient will return to the clinic in approximate 2 weeks for follow-up, was counseled as return appointment, activity level, and side effect to be aware of. Medication Injected: Med Injected: Procedure is lumbar epidural steroid injection under local anesthetic using sterile prep and drape at the L3-4 level using C-arm fluoroscopic guidance in both AP and lateral views medications injected is 120 mg Depo-Medrol +10mL preservative-free normal saline and 2 mL contrast- condition at discharge is sta ble patient tolerated procedure well had no complications. Condition at Discharge: Condition at Discharge: Condition at discharge stable, patient already the procedure well and had no complications. SHRUTHI JAY MD Jul 17, 2021 13:16
--- NOTE | 2021-07-17 13:17 | PDOC4 ---
Procedure Note: ICD 10 Code: ICD 10 Code: M54.16 M51.36 M 96.1 Procedure Note: Patient was consented for lumbar epidural steroid injection with fluoroscopic guidance. Risks were discussed including but not limited to: Bleeding, infection, possibility of epidural hematoma and subsequent neurological compromise, dural puncture, headaches, spinal cord and/or nerve damage, side effects of steroid medication, and poor results regarding pain control. Patient understands and wished to proceed. Procedure is lumbar epidural steroid injection under local anesthetic using ster ile prep and drape at the L3-4 level using C-arm fluoroscopic guidance in both AP and lateral views medications injected is 120 mg Depo-Medrol +10mL preservative-free normal saline and 2 mL contrast- condition at discharge is stable patient tolerated procedure well had no complications. SHRUTHI JAY MD Jul 17, 2021 13:17
== END | disposition home or self-care (01) ==
LOC: PNCL 12:25
PROVIDERS: ATTEND Anesthesiology
DX: M51.16 Intervertebral disc disorders with radiculopathy, lumbar region (principal); M96.1 Postlaminectomy syndrome, not elsewhere classified; I10 Essential (primary) hypertension; I48.91 Unspecified atrial fibrillation; E78.00 Pure hypercholesterolemia, unspecified; M19.90 Unspecified osteoarthritis, unspecified site; K21.9 Gastro-esophageal reflux disease without esophagitis; F32.9 Major depressive disorder, single episode, unspecified; Z85.828 Personal history of other malignant neoplasm of skin; Z87.891 Personal history of nicotine dependence; Z90.49 Acquired absence of other specified parts of digestive tract; Z90.710 Acquired absence of both cervix and uterus; Z98.890 Other specified postprocedural states; Z79.899 Other long term (current) drug therapy; Z88.8 Allergy status to other drugs, medicaments and biological substances
CPT/HCPCS: 62323; J1030; J1040; Q9965